=== PATIENT | female | born 1955 | race Caucasian/White ===

== ENCOUNTER 2017-05-17 22:47 | Emergency (ER) | payer BC ==
[2017-05-18] MEDS ORDERED: oxyCODONE/Acetamin 5/325 MG* TAB PO ONE (01:05)
[2017-05-18] MEDS ORDERED: Sulfamethox/Trimethoprim DS 800/160* TAB PO ONE (01:05)
[2017-05-18] MEDS ORDERED: Cephalexin CAP* 500 MG PO ONE (01:05)
--- NOTE | 2017-05-18 01:07 | ED ---
Skin Complaint - HPI Summary HPI Summary: 62F presents with 2nd toe right infection for 2 days. She says she may have gotten a bug bite on the area. It really started to swell and the redness started to spread today. She states that she has pain when she tries to ambulate. She does have a history of cellulitis but not off MRSA. She is not DM. She denies any fevers. She has been out in the garden recently and thought she got bite by a spider. She is still able to move her toes just states she has a lot of swelling that prohibits her from a lot of movement. - History of Current Complaint Chief Complaint: EDExtremityLower Time Seen by Provider: 05/18/17 00:10 Stated Complaint: BITE ON TOE Pain Intensity: 7 - Allergy/Home Medications Allergies/Adverse Reactions: Allergies Allergy/AdvReac Type Severity Reaction Status Date / Time No Known Allergies Allergy Verified 05/17/17 23:08 PMH/Surg Hx/FS Hx/Imm Hx Endocrine/Hematology History: Denies: Hx Diabetes, Hx Thyroid Disease, Hx Anemia Cardiovascular History: Reports: Hx Hypertension - uses exercise and diet Respiratory History: Reports: Hx Sleep Apnea - current CPAP user Denies: Hx Asthma, Hx Chronic Obstructive Pulmonary Disease (COPD) GI History: Denies: Hx Jaundice, Hx Ulcer Sensory History: Reports: Hx Contacts or Glasses Opthamlomology History: Reports: Hx Contacts or Glasses - Cancer History Cancer Type, Location and Year: Thyroid cancer 2016 Hx Chemotherapy: No Hx Radiation Therapy: No - Surgical History Surgery Procedure, Year, and Place: Thyroidectomy 2016 Infectious Disease History: No Infectious Disease History: Denies: Hx Hepatitis, Hx Human Immunodeficiency Virus (HIV), Traveled Outside the [place] in Last 30 Days - Family History Known Family History: Positive: Hypertension - Social History Alcohol Use: Occasionally Alcohol Amount: Glass of wine/day Substance Use Type: Reports: None Smoking Status (MU): Never Smoked Tobacco Review of Systems Negative: Fever Negative: Chest Pain Negative: Shortness Of Breath Positive: Rash All Other Systems Reviewed And Are Negative: Yes Physical Exam Triage Information Reviewed: Yes Vital Signs On Initial Exam: Initial Vitals Temp Pulse Resp BP Pulse Ox 99.3 F 96 16 174/74 100 05/17/17 23:00 05/17/17 23:00 05/17/17 23:00 05/17/17 23:00 05/17/17 23:00 Vital Signs Reviewed: Yes Appearance: Positive: Well-Appearing Skin: Positive: Warm, Dry, Other - area of erythema on 2nd toe and dorsum of foot onto top of foot with area of streaking up 5cm above ankle, warm to touch Head/Face: Positive: Normal Head/Face Inspection Eyes: Positive: Normal, Conjunctiva Clear Respiratory/Lung Sounds: Positive: Clear to Auscultation, Breath Sounds Present Cardiovascular: Positive: Normal, RRR Musculoskeletal: Positive: Limited @ - no pain with passive ROM, due to swelling limited ROM, Edema Right - 2nd toe, Other - good pulses, capillary refill< 2 secs, - Bita Coma Scale Coma Scale Total: 15 Diagnostics - Vital Signs Vital Signs Temp Pulse Resp BP Pulse Ox 05/18/17 00:05 98 96 05/18/17 00:03 157/72 05/17/17 23:53 99.3 F 96 16 174/74 100 05/17/17 23:00 99.3 F 96 16 174/74 100 - Laboratory Lab Statement: Any lab studies that have been ordered have been reviewed, and results considered in the medical decision making process. Course/Dx - Course Course Of Treatment: 62F presents with 2nd toe right infection for 2 days. She says she may have gotten a bug bite on the area. It really started to swell and the redness started to spread today. She states that she has pain when she tries to ambulate. She does have a history of cellulitis but not off MRSA. She is not DM. She denies any fevers. She has been out in the garden recently and thought she got bite by a spider. She is still able to move her toes just states she has a lot of swelling that prohibits her from a lot of movement. on exam has cellulitis of 2nd toe that extends half way up foot on dorsum and anterior side. afebrile. will treat with keflex and bactrim. patient understands and agrees with plan. - Differential Diagnoses - Skin Complaint Differential Diagnoses: Abscess, Cellulitis, Contact Dermatitis - Diagnoses Provider Diagnoses: Cellulitis of right foot Discharge - Discharge Plan Condition: Good Disposition: HOME Prescriptions: Cephalexin CAP* [Keflex CAP*] 500 mg PO BID #19 cap Sulfamethox/Trimethoprim DS* [Bactrim DS 800/160 TAB*] 1 tab PO BID #19 tab Patient Education Materials: Cellulitis (ED) Referrals: Arlyn Logan NP [Primary Care Provider] - Additional Instructions: Take Keflex twice a day for 10 days, first dose given in ED Take Bactrim twice a day for 10 days, first dose given in ED Place ice on area Follow up with primary next week Return to ED if develop fever, area of redness spreads after two day of antibiotics, or any new or worsening symptoms
[2017-05-18 01:35] VITALS: BP 148/82
== END 2017-05-18 01:35 | disposition home or self-care (01) ==
LOC: ED 22:47
DX: L03.115 Cellulitis of right lower limb (principal); R21 Rash and other nonspecific skin eruption
CPT/HCPCS: 99283; A9270-GY

== ENCOUNTER 2017-05-20 14:41 | Emergency (ER) | payer BC ==
[2017-05-20 14:51] VITALS: BP 176/84
--- NOTE | 2017-05-20 15:34 | UC ---
Skin Complaint HPI - HPI Summary HPI Summary: 62 y/o female presents to the urgent care c/o her cellulitis of the RT foot since 05/16/2017. Pt reports she had an insect bite between RT #2 and #3 toes, the next day she developed pain, swelling and red streaks around the dorsal side of the RT foot. She went to the ER on 05/17/2017 and was D/C home w/ Keflex and Bactrim Po. She has been taking the antibiotics, However today she has developed and blister that is causing a lot of pain and pressure which makes her difficult to walk . Pain is 2/10 at rest and 7/10. The red streaks is resolving. Pt has HX of cellulitis, but no MRSA and no HX of DM. Pt denies fever , SOB, chest pain, N/V/D. Pt has not other complains. - History of Current Complaint Chief Complaint: UCLowerExtremity Time Seen by Provider: 05/20/17 15:07 Stated Complaint: CELLULITIS Hx Obtained From: Patient Hx Last Menstrual Period: post menopausal Onset/Duration: Sudden Onset, Lasting Days, Still Present Skin Exposure Onset/Duration: Days Ago Timing: Constant Onset Severity: Mild Current Severity: Moderate Pain Intensity: 7 - with ambulation Pain Scale Used: 0-10 Numeric Location: Discrete - Cellulitis of RT foot w/ possible abscess between 2nd and 3rd toes Character: Swelling, Pain, Redness Aggravating: Other - ambulating Alleviating: Cold, OTC Meds Associated Signs & Symptoms: Positive: Tenderness Related History: Possible Reaction to: Insect - Allergy/Home Medications Allergies/Adverse Reactions: Allergies Allergy/AdvReac Type Severity Reaction Status Date / Time No Known Allergies Allergy Verified 05/20/17 14:52 Review of Systems Constitutional: Negative Skin: Rash - RT foot w/ cellulitis and pain Respiratory: Negative Cardiovascular: Negative Gastrointestinal: Negative Genitourinary: Negative Motor: Negative Neurovascular: Negative Musculoskeletal: Negative Neurological: Negative Psychological: Negative All Other Systems Reviewed And Are Negative: Yes PMH/Surg Hx/FS Hx/Imm Hx Previously Healthy: Yes Other Endocrine History: Thyroid cancer - Surgical History Surgical History: Yes Surgery Procedure, Year, and Place: Thyroidectomy 2016 - Family History Known Family History: Positive: Hypertension - Social History Occupation: Employed Full-time Lives: With Family Alcohol Use: Occasionally Alcohol Amount: Glass of wine/day Substance Use Type: None Smoking Status (MU): Never Smoked Tobacco Physical Exam Triage Information Reviewed: Yes Appearance: Well-Appearing, No Pain Distress, Well-Nourished Vital Signs: Initial Vital Signs Temp 98.1 F 05/20/17 14:47 Pulse 88 05/20/17 14:47 Resp 12 05/20/17 14:47 BP 176/84 05/20/17 14:47 Pulse Ox 98 05/20/17 14:47 Vital Signs Reviewed: Yes Eye Exam: Normal Eyes: Positive: Conjunctiva Clear - PERRLA, EOMI, fundi grossly normal ENT Exam: Normal ENT: Positive: Normal ENT inspection, Hearing grossly normal, Pharynx normal, TMs normal Dental Exam: Normal Neck exam: Normal Neck: Positive: Supple, Nontender, No Lymphadenopathy Respiratory Exam: Normal Respiratory: Positive: Chest non-tender, Lungs clear, Normal breath sounds Cardiovascular Exam: Normal Cardiovascular: Positive: RRR, No Murmur, Pulses Normal Abdominal Exam: Normal Abdomen Description: Positive: Nontender, No Organomegaly, Soft. Negative: CVA Tenderness (R), CVA Tenderness (L) Bowel Sounds: Positive: Present Musculoskeletal Exam: Normal Musculoskeletal: Positive: Strength Intact, ROM Intact Neurological Exam: Normal Psychological Exam: Normal Skin: Positive: significant lesion(s) - RT foot w/ infected wound s/p insect bite between #2 and #3 toes w/ a moderate blister on dorsal side of foot and plantar interdigital abscess. erythema w/ indistinct borders sorrounding wound decreasing in size as skin demarcation observed. size of wound 2cm x 3cm. Tender to palaption and moderate swelling of both toes, decrease ROM of toes due to pain, Positve sensation, capillary refill intac and positive pulses. Course/Dx - Course Course Of Treatment: 62 y/o female presents to the urgent care c/o her cellulitis of the RT foot since 05/16/2017. Pt reports she had an insect bite between RT #2 and #3 toes, the next day she developed pain, swelling and red streaks around the dorsal side of the RT foot. She went to the ER on 05/17/2017 and was D/C home w/ Keflex and Bactrim Po. She has been taking the antibiotics , However today she has developed and blister that is causing a lot of pain and pressure which makes her difficult to walk . Pain is 2/10 at rest and 7/10. The red streaks is resolving. Pt has HX of cellulitis, but no MRSA and no HX of DM. Pt denies fever, SOB, chest pain, N/V/D. HX obtained. Incision and drainage of blister and wound. Time out performed. Pt explained procedure and consent obtained. PT foot soaked in warm water for few minutes, then cleaned with iodine 3X, small incision performed over the blister w/ a 11 blade scapel. Moderate serous discharge drained from wound. Then plantar wound punctured w/ an 18G needle and serous discharge drained. Wound culture obtained. Pt tolerated well procedure and felt better, pain decreased. Bacitracin applied over the sound and sterile dressing placed. Pt advised to keep wound clean and dry and apply Bacitracin and continue taking ABX. F/u with PCP in 2-3 days for wound recheck. Pt understood and agreed and left the clinic ambulating and feeling better. - Differential Diagnoses - Skin Complaint Differential Diagnoses: Abscess, Cellulitis, Local Allergic Reaction, MRSA, Tick Born Illness, Other - insect bite - Diagnoses Provider Diagnoses: 1-RT foot cellulitis w/ interdigital abcess. 2-Elevated Blood pressure w/o HX of HTN Discharge - Discharge Plan Condition: Stable Disposition: HOME Patient Education Materials: Cellulitis (ED), Low Sodium Diet (ED) Referrals: Arlyn Logan NP [Primary Care Provider] - 2 Days Additional Instructions: Please continue taking the antibiotics as directed. clean wound clean and dry and apply Bacitracin ointment TID. Please F/u with your PCP in 2-3 for wound check. If fever, redness and unable to move toe develops please go immediately to the ER for further management. Your Bp is elevated today, please decrease salt in your diet and f/u with PCP for further management.
== END 2017-05-20 16:11 | disposition home or self-care (01) ==
LOC: UCEAST 14:41
DX: L03.115 Cellulitis of right lower limb (principal); L02.611 Cutaneous abscess of right foot; R03.0 Elevated blood-pressure reading, without diagnosis of hypertension; Z85.850 Personal history of malignant neoplasm of thyroid
CPT/HCPCS: 10060; 87070; 87205; 87640; 87641; 99211; G0463